=== PATIENT | female | born 1925 | race Caucasian/White ===

== ENCOUNTER 2017-01-13 20:14 | Inpatient (IN) | payer OTHER, BC ==
[~2017-01-13] VITALS: Ht 157.5 cm; Wt 67.2 kg
--- NOTE | ~2017-01-13 | EKG ---
[address] [address] ELECTROCARDIOGRAM REPORT Name: AQUILINO SAAVEDRA Room #: 214-P ADM IN M.R.#: [id number] Admission: 01/13/17 Attend Phys: Lew Escobar MD Discharge: Date of : [birth year] Report #: [id number] THIS REPORT FOR: //name// [facility] Test Date: 2017-01-14 Test Time: 06:53:16 Pat Name: AQUILINO SAAVEDRA Department: Room: 214 P Gender: F [employer]: serg : 1925 Requested By: Luis Stuart Order Number: [id number] MD: Rohan Grayson Measurements Intervals [place] Rate: 106 P: 68 VA: 160 QRS: 28 QRSD: 92 T: 0 QT: 338 QTc: 449 Interpretive Statements Sinus tachycardia Borderline repol abnrm, inferolateral leads No previous ECG available for comparison Electronically Signed On 01-15-2017 12:43:38 CDT by Rohan Grayson [email or web address] <ELECTRONICALLY SIGNED> By: Rohan Grayson MD 01/15/17 1243 0653 0653 Rohan Grayson MD /THERESE
--- NOTE | ~2017-01-13 | H ---
[facility] [place] [address] HISTORY AND PHYSICAL Name: AQUILINO SAAVEDRA Room #: 214-P ADM IN M.R.#: [id number] Admission: 01/13/17 Attend Phys: Lew Escobar MD Discharge: Date of : [birth year] Report #: [id number] THIS REPORT FOR: //name// CC: MAUREEN Escobar DATE OF ADMISSION: 01/13/2017 ATTENDING PHYSICIAN: Dr. Crouch. PRIMARY CARE PHYSICIAN: Dr. Sterling in ____. CHIEF COMPLAINT: Elevated troponin. HISTORY OF PRESENT ILLNESS: The patient is an 89-year-old female, who was recently admitted two days ago at [facility] for fevers and chills. Initially, there was not a source of infection, but on a repeat chest x-ray, it looks like she did develop left lower lobe pneumonia. Initially, she had been on Rocephin and Zithromax, but because she was still spiking fevers, her antibiotics were changed to Avelox. Yesterday while receiving her Avelox dose, she had a suddenly increase in heart rate with some chest heaviness and became very short of air. She also dropped her blood pressure. Her troponin came back mildly elevated, so she was transferred here at the request of her physician, who happened to also be her son, Dr. Sterling. She was also noted to be anemic. There were no signs of bleeding. She had been on prophylactic Lovenox, but this was held once her hemoglobin started dropping. On repeat blood draws, her hemoglobin was 7 and she was receiving blood transfusion upon arrival to [place]. She does have a history of mesenteric ischemia and GI bleeding. She had had a colonoscopy previously, which showed some AVMs. She has had celiac as well as iliac vascular stents. When she was here in 2008 for those stents, she also underwent a cardiac catheterization. She has a total of 3 coronary stents as well. She is followed by Dr. Stuart. She was transferred here for further cardiac evaluation. Upon arrival, she was doing well. She did receive a dose of Lasix since she had become wheezy after receiving IV fluids. She was afebrile on arrival. There is no prior history of any DVT or PE. PAST MEDICAL HISTORY: Coronary artery disease, hyperlipidemia, carotid disease, hypertension, hypothyroidism, mesenteric ischemia, GI bleed with AVMs, and peripheral arterial disease. PAST SURGICAL HISTORY: Celiac and iliac vascular stents, coronary stents x 3, tonsillectomy, hysterectomy, ____. ALLERGIES: PLAVIX, COREG, and AVELOX. HOME MEDICATIONS: Lisinopril 10 mg p.o. b.i.d., Estradiol 1 mg p.o. daily, [facility] [address] [place] [address] HISTORY AND PHYSICAL Name: AQUILINO SAAVEDRA Room #: 214-P ADM IN M.R.#: [id number] Admission: 01/13/17 Attend Phys: Lew Escobar MD Discharge: Date of : [birth year] Report #: [id number] ranitidine 75 mg daily, levothyroxine 100 mcg daily, loratadine 10 mg b.i.d., aspirin 81 mg daily, calcium carbonate 1 tab daily, Myrbetriq 50 mg daily, and cholestyramine 4 grams daily. SOCIAL HISTORY: The patient is an ex-smoker, having smoked up to a pack per day for about 33 years. She quit in 1979. She drinks alcohol about 1-2 times per month. She is actually a retired RN, she lives alone. She is a . She ambulates with a cane or a walker. FAMILY HISTORY: Her mother had hypertension and stroke. Her father had ____ cancer and her sister had ovarian cancer. REVIEW OF SYSTEMS: A twelve-point review of systems was reviewed with the patient and family and otherwise negative unless stated in the HPI. PHYSICAL EXAMINATION: GENERAL: The patient is an alert female, in no acute distress. VITAL SIGNS: Temperature is 36.8, heart rate 79, respirations 18, blood pressure is 129/89, and oxygen 95% on 2 liters O2. HEENT: PERRLA. Sclerae are nonicteric. Oral mucosa is pink and moist. NECK: Supple, no JVD noted. CARDIOVASCULAR: Normal S1, S2. No murmurs, rubs, or gallops. RESPIRATORY: Breath sounds are clear bilaterally. No wheezing or rhonchi. She does have a few fine crackles in bilateral bases. Breathing is nonlabored. ABDOMEN: Soft, round, nontender, and nondistended with positive bowel sounds. VASCULAR: No edema noted. Pedal pulses are 2+. She does have some mild pain in her left leg with palpation. DICTATION STOPS ABRUPTLY <ELECTRONICALLY SIGNED> By: LLOYD Amezcua 01/15/17 0907 0912 1157 LLOYD Amezcua /nt
--- NOTE | ~2017-01-13 | HC ---
[facility] [place] [address] CONSULTATION Name: AQUILINO SAAVEDRA Room #: 214-P ADM IN M.R.#: [id number] Admission: 01/13/17 Attend Phys: Lew Escobar MD Discharge: Date of : [birth year] Report #: [id number] THIS REPORT FOR: //name// CC: CLYDE STERLING DO Lew Escobar HISTORY OF PRESENT ILLNESS: The patient is an 89-year-old female, well known to myself, who lives, I believe, in [place], [place]. Her son is Dr. Clyde Sterling and her father is Dr. Jj Sterling here in town. She has a history of moderate carotid disease, which we have been following, but she became ill at the end of last week, it sounds like with some questionable fever, chills, cough and shortness of breath. She has had a history of peripheral vascular disease with iliac stents and a patent superior mesenteric, inferior mesenteric and celiac arteries. The inferior mesenteric was previously stented. She has a history of remote coronary interventions and a diffusely diseased RCA, but no recent interventions coronary echols. She did have some hypoxia and some anemia and had developed some ST depression on an EKG in [place], with a troponin of 0.5, which was somewhat equivocal. Had some associated chest pain. She is having no further pain. She was transfused a unit. Hemoglobin initially around 7, now 9.5 today. She is in sinus rhythm. This morning's EKG has normalized with some borderline sinus tachycardia with some subtle ST abnormalities laterally. She has been compliant. She denies any melenic stools or any obvious source of bleeding. MEDICATIONS: She has been on baby aspirin, Claritin, Synthroid, cholestyramine, lisinopril 10 b.i.d., ranitidine and levothyroxine. ALLERGIES: MOXIFLOXACIN, SULFA and PLAVIX. PAST MEDICAL HISTORY: Positive for coronary artery disease; left internal carotid artery stenosis 70% to 80% asymptomatic, we are following; PVD with history of inferior mesenteric artery stents and common iliac stents; hypertension; hypercholesterolemia; renal stents and DJD. SOCIAL HISTORY: No current alcohol or tobacco. She is . She lives independently. FAMILY HISTORY: Negative for premature coronary disease. REVIEW OF SYSTEMS: Essentially negative, except for perhaps some slight worsening forgetfulness and more fatigue she complains to me and as stated above. LABORATORY DATA: Sodium 132, potassium 4.1, creatinine 1.5, GFR is 33. Liver function tests are normal. H and H are 9.5 and 28, white count is 9.0 and platelets 172,000. [address] [address] CONSULTATION Name: AQUILINO SAAVEDRA Room #: 214-P [facility] IN M.R.#: [id number] Admission: 01/13/17 Attend Phys: Lew Escobar MD Discharge: Date of : [birth year] Report #: [id number] PHYSICAL EXAMINATION: GENERAL: She is pleasant and alert. VITAL SIGNS: Blood pressure 150/90, pulse is 80s and regular. HEENT: Eyes reveal some arcus senilis, but no xanthelasmas. Pharynx is clear. NECK: Shows preserved upstrokes without JVD. There is a left-sided bruit. LUNGS: Clear with slight prolonged expiratory phase, few crackles in the left base. CARDIAC EXAMINATION: Regular rate and rhythm. S1, S2. There is a faint holosystolic murmur at the apex. ABDOMEN: Soft, HSM, abdominal bruit. EXTREMITIES: Reveal diminished pulses, but intact. NEUROLOGIC: Nonfocal. SKIN: Warm and dry, without xanthoma or ulcer. MUSCULOSKELETAL: No gross joint deformity. ASSESSMENT: 1. Pneumonia. 2. Ischemic EKG changes. 3. Anemia, improved. 4. Peripheral vascular disease with history of iliac and renal stents, inferior mesenteric artery stents. 5. Coronary artery disease, stable with now subtle EKG changes and equivocal troponin. RECOMMENDATIONS AND PLAN: We are waiting for GI evaluation. V/Q scan with her pain and elevated D-dimer, although it seems less likely here. She is minimally hypoxic. We will repeat a chest x-ray in addition. We will review echo Doppler looking for any wall motion abnormality, but I suspect this will not be the finding. Discussed the above with GI and primary. Thank you for asking us to assist in the care of this patient. By: 0851 1430 Luis Stuart MD, FACC /nt
--- NOTE | ~2017-01-13 | HC ---
[facility] [address] [place] [address] CONSULTATION Name: AQUILINO SAAVEDRA Room #: 214-P ADM IN M.R.#: [id number] Admission: 01/13/17 Attend Phys: Lew Escobar MD Discharge: Date of : [birth year] Report #: [id number] THIS REPORT FOR: //name// CC: MAUREEN Kaur MD [facility] Lew Dai MD DATE OF SERVICE: 01/14/2017 HISTORY OF PRESENT ILLNESS: The patient is an 89-year-old female who was recently admitted to [facility] for fevers and chills. She was then diagnosed with a left lower lobe pneumonia. She does report some wheezing and she was started on antibiotics. During that hospitalization, she had an episode of tachycardia, chest heaviness and mild elevation in troponin, also had a drop in her hemoglobin and has a history of anemia. Because of these reasons, she was transferred to for further evaluation. She apparently has been receiving blood transfusion at the previous hospital. She states there is a history of colonoscopy showing AVMs in the past. I do not have a copy of these reports. She believes her last colonoscopy was performed at [place], but looking back in the computer, there is no history of that. She does have a history of mesenteric ischemia as well as peripheral vascular disease. She currently denies any chest pain or shortness of breath. Her stools are Hemoccult positive today times 1. She denies any obvious bright red blood per rectum or melena recently. She denies any abdominal pain. She does have a history of chronic diarrhea and takes cholestyramine as well as Imodium, which in general controls her symptoms fairly well. PAST MEDICAL HISTORY: Peripheral vascular disease, history of mesenteric ischemia, possible history of colon AVMs, recent diagnosis of pneumonia, anemia, history of coronary artery disease, hypertension, hypercholesterolemia and history of renal stents. ALLERGIES: PLAVIX, SULFA and MOXIFLOXACIN. MEDICATIONS ON ADMISSION: Aspirin, Claritin, cholestyramine, lisinopril, Zantac and Synthroid. FAMILY HISTORY: Negative for colon cancer. REVIEW OF SYSTEMS: As per HPI. SOCIAL HISTORY: She denies any tobacco or alcohol use. PHYSICAL EXAMINATION: [facility] [address] [place] [address] CONSULTATION Name: AQUILINO SAAVEDRA Room #: 214-P [facility] IN ..#: [id number] Admission: 01/13/17 Attend Phys: Lew Escobar MD Discharge: Date of : [birth year] Report #: [id number] VITAL SIGNS: Temperature 98.8, pulse 98, blood pressure 186/68, respiratory rate is 22 and O2 sat 100%. GENERAL: She is alert and oriented times 3, in no acute distress. HEENT: Sclerae nonicteric. Oropharynx clear. NECK: Supple, without lymphadenopathy. CARDIOVASCULAR: Regular rate and rhythm. CHEST: With bilateral faint expiratory wheezes, decreased breath sounds in the left base. ABDOMEN: Soft. She is nontender and nondistended. Normoactive bowel sounds. EXTREMITIES: No cyanosis, clubbing or edema. LABORATORY DATA: Sodium 132, potassium 4.1, chloride 97, bicarbonate 26, BUN 13, creatinine 1.5 and glucose 99. AST is 96, total bilirubin 0.7, calcium 8.0, magnesium 1.9, alkaline phosphatase 80 and ALT is 53. Total protein 6.1. Albumin 2.8. Troponin 0.56. WBC is 9.0, hemoglobin 9.5, MCV 73.7 and platelet count 172,000. Chest x-ray, mediastinal widening with right paratracheal widening. CT could evaluate this further indicated small right pleural effusion. CT scan of the chest has been ordered. A nuclear medicine V/Q scan shows low probability for pulmonary embolus. ASSESSMENT AND PLAN: Anemia and heme-positive stools. No history of obvious GI bleed, including melena or bright red blood per rectum. Currently, the patient has a history of pneumonia. I would recommend continuing to monitor hemoglobin closely. Consider endoscopy if necessary. However, because of her pulmonary status and her age and other factors, would prefer the patient to hopefully improve from a pulmonary status before considering endoscopy. We will start PPI therapy. We will need to obtain old records of previous colonoscopy. Thank you for allowing me to participate in her care. <ELECTRONICALLY SIGNED> By: Shaan Cantu MD 01/15/17 1621 1734 0042 Shaan Cantu MD /nt
--- NOTE | ~2017-01-13 | HC ---
[facility] [place] [address] [place] [address] CONSULTATION Name: AQUILINO SAAVEDRA Room #: 214-P [facility] IN M.R.#: [id number] Admission: 01/13/17 Attend Phys: Lew Escobar MD Discharge: 01/16/17 Date of : [birth year] Report #: [id number] THIS REPORT FOR: //name// CC: MAUREEN Escobar DATE OF SERVICE: 01/16/2017 HISTORY OF PRESENT ILLNESS: The patient is an 89-year-old white female who lives in [place], [place], was originally admitted to [facility], noted to have fever, chills and diagnosed with a left lower lobe pneumonia. She had an elevated heart rate. There was concern regarding her overall status and she was transferred to [facility]. She was diagnosed with pneumonia with ischemic cardiac changes and possible ST elevation [place]. Cardiology is involved with recommendations for stress testing as an outpatient. She also had a heme positive stool and is on PPIs. She does have medical complexity with generalized debilitation. She is being followed by Pulmonary, Cardiology, Gastroenterology as well as Internal Medicine. She was noted to have a severe paroxysmal cough, which is significantly improved. She has had a significant decline in her overall function and we are seeing her in rehabilitation medicine consultation. PAST MEDICAL HISTORY: Includes prior [place], prior cardiac stent x 3, right hand surgery with arthritis. She has had 2 renal stents and 2 mesenteric stents. ALLERGIES: MOXIFLOXACIN, SULFA and CLOPIDOGREL. SOCIAL HISTORY: Lives in a house alone, was premorbidly independent for ADLs. She used a cane at all times. There are 3 steps into the house. She lives in [place], [place]. Her daughter lives very close and there is a son who lives there as well who is a physician. She has another son, Dr. Jj Sterling who is a carburetor rebuilder here in the [place]. REVIEW OF SYSTEMS: Did not offer any current complaints of chest pain, shortness of breath or abdominal discomfort. She notes that she is considerably weak. No focal extremity pain complaints. PHYSICAL EXAMINATION: GENERAL: An 89-year-old small statured, thin, white female in no obvious distress. She is very pleasant, alert, oriented. HEENT: Appeared to be benign. VITAL SIGNS: Temperature 98, pulse 80, respirations 16, blood pressure 170/90. NEUROLOGIC: Facies are symmetric. She has functional range of motion of both upper extremities without obvious focal weakness. DTRs are trace to 1. In her lower extremities, there is no focal calf swelling, functional range of motion with strength grade 4-/5. DTRs are trace to 1. She is mod assist with sit to [address] [address] CONSULTATION Name: AQUILINO SAAVEDRA Room #: 214-P DIS IN M.R.#: [id number] Admission: 01/13/17 Attend Phys: Lew Escobar MD Discharge: 01/16/17 Date of : [birth year] Report #: [id number] stand. She has some decreased balance. Tends to fatigue fairly quickly. ASSESSMENT: An 89-year-old white female with the following problem list: 1. Medical complexity with generalized debilitation. 2. Pneumonia, left lower lobe. Likely has bronchitis as well. Bronchodilators, steroids, Pulmonary is following. 3. Ischemic EKG changes with recommendations for outpatient nuclear. 4. Heme positive stool on PPI, GI is following. 5. History of peripheral vascular disease with renal and iliac stents, inferior mesenteric artery stents. 6. Coronary artery disease. 7. Hypertension. 8. History of hyponatremia. 9. Severe paroxysmal cough, which has improved, suspect due to gastroesophageal reflux disease. PLAN: Therapy evaluations are underway. Would anticipate she should be a good acute inpatient rehabilitation candidate, but we will see how she does further in therapies. Discussion with the patient's son father Asher. We will be glad to follow along with you regarding her rehab therapy needs. <ELECTRONICALLY SIGNED> By: Eloy Baez MD 01/22/17 1825 1148 1243 Eloy Baez MD /nt
--- NOTE | ~2017-01-13 | HC ---
[facility] [place] [address] CONSULTATION Name: AQUILINO SAAVEDRA Room #: 214-P [facility] IN M.R.#: [id number] Admission: 01/13/17 Attend Phys: Lew Escobar MD Discharge: 01/16/17 Date of : [birth year] Report #: [id number] THIS REPORT FOR: //name// CC: CLYDE Escobar PRIMARY CARE PHYSICIAN: Dr. Clyde Sterling. REFERRING PHYSICIAN: Dr. Lew Escobar. REASON FOR REFERRAL: Cough. HISTORY OF PRESENT ILLNESS: The patient is an 89-year-old white female who was admitted with progressive cough and dyspnea. A pulmonary consultation was requested. The patient was in her usual state of health until a few days ago, she started to develop cough. She then developed low-grade fever. She had a mildly productive cough of clearish sputum. She was admitted at [facility]. Chest x-ray performed there suggests possible left sided infiltrates. The patient was given Rocephin and Zithromax. With persistent symptoms, antibiotics was switched to Avelox. This resulted in tachycardia and chest heaviness. Her troponin was mildly elevated. The patient's son was Ashley Mejíaer, requested a transfer to [facility]. Overall, she feels about the same. She still has severe paroxysmal cough, sputum color remains clear. Denies any chest pain or hemoptysis. The patient has smoked for about 40 years, quit several years ago. She has no prior history of chronic lung disease. She denies any history of chronic bronchitis. The patient does have trouble with chronic dyspepsia. PAST MEDICAL HISTORY: Includes history of mesenteric ischemia with past history of GI bleed, history of gastrointestinal AVMs, coronary artery disease, hyperlipidemia, peripheral artery disease involving carotids and hypertension. PAST SURGICAL HISTORY: Stents being placed in iliac and celiac arteries, coronary artery stents placement in the past, tonsillectomy and hysterectomy. ALLERGIES: AVELOX, PLAVIX, COREG. AVELOX causes rash. MEDICATIONS: List reviewed in the MAR. FAMILY HISTORY: Notable for hypertension and CVA in the mother. Father had cancer of unknown type. 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 Her was a physician along with the son. She has smoked about a pack a day for a total of 33 years, quit in 1979. She drinks 1-2 drinks per month. REVIEW OF SYSTEMS: As mentioned above, otherwise 10-point system review negative. PHYSICAL EXAMINATION: GENERAL: She is awake, alert, in no apparent distress. VITAL SIGNS: Temperature is 98.8 degrees Fahrenheit, pulse is 98, respiratory rate is 22, blood pressure is 150/98 mmHg, saturation 98%. HEENT: Normocephalic, atraumatic. NECK: Supple, without any lymphadenopathy or thyromegaly. CHEST: Breath sounds are good with few scattered crackles. No wheezes. CARDIOVASCULAR: Normal S1, S2. No murmurs or gallop. ABDOMEN: Soft, nontender, no organomegaly or masses felt. GENITOURINARY: Deferred. RECTAL: Deferred. EXTREMITIES: No cyanosis or clubbing. DERMATOLOGIC: Revealed mild macular rash throughout. LABORATORY DATA: Chest x-ray was grossly unremarkable except for a questionable mediastinal widening, right paratracheal widening. Echocardiogram showed normal ejection fraction, [id number] mitral regurgitation and moderate pulmonary artery pressure measuring 45-50. VQ scan showed low probability scan. Electrolytes: Sodium 132, potassium 4.1, chloride 97, CO2 is 26, BUN 13, creatinine is 1.5. Liver function test is normal. WBC 9000, hemoglobin is microcytic and hypochromic indices. Platelets are normal. Troponin 0.6, albumin 2.8. IMPRESSION: 1. Cough, febrile illness in this 89-year-old white female. She has long history of tobacco use, but quit many years ago. She has dyspepsia. Chest x-ray shows questionable mediastinal widening. Etiology of the cough is probably related to gastroesophageal reflux disease with febrile illness, cannot rule out infectious source, though her sputum has remained clear. Underlying chronic obstructive pulmonary disease is also considered. 2. Questionable widening mediastinum. I will proceed with CT chest. 3. Long history of tobacco use. Based on pulmonary functions, will be helpful as an outpatient. 4. Chest discomfort with elevated troponin, currently undergoing cardiac evaluation. 5. Dyspepsia, gastroesophageal reflux disease. 6. Coronary artery disease. 7. Peripheral artery disease. [facility] [address] [place] [address] CONSULTATION Name: AQUILINO SAAVEDRA Room #: 214-P DIS IN M.R.#: [id number] Admission: 01/13/17 Attend Phys: Lew Escobar MD Discharge: 01/16/17 Date of : [birth year] Report #: [id number] RECOMMENDATION: Agree with current medical treatment plans including corticosteroids and bronchodilators, was switched to Protonix p.o. Agree with antibiotics. We will also obtain CT chest regarding questionable mediastinal process. The findings were discussed in detail with the patient and her son. Thank you for this consultation. <ELECTRONICALLY SIGNED> By: Chandrakant Dai MD 01/19/17 1600 1702 0146 Chandrakant Dai MD /nt
--- NOTE | ~2017-01-13 | 2DMMODE ---
[facility] [address] [place] [address] 2 D/M-MODE ECHOCARDIOGRAM Name: AQUILINO SAAVEDRA Room #: 214-P ADM IN M.R.#: [id number] Admission: 01/13/17 Attend Phys: Michael Wellington Discharge: Date of : [birth year] Date of Service: 01/14/17 1358 Report #: [id number] THIS REPORT FOR: //name// APPROVED REPORT Study performed: 01/14/2017 11:43:20 EXAM: Comprehensive 2D, Doppler, and color-flow Echocardiogram Patient Location: Echo lab Room #: 214 Status: routine Other Information Study Quality: Adequate Indications Dyspnea Hx: NC, stents 2D Dimensions RVDd: 30.14 mm LVEF(%): 52.95 (>50%) IVSd: 9.83 (7-11mm) LVOT Diam: 19.93 (18-24mm) LVDd: 42.75 mm PWd: 9.73 (7-11mm) LVDs: 31.21 (25-40mm) Aortic Root: 27.95 mm Louis's LVEF: 52.95 % Volumes Left Atrial Volume (Systole) Single Plane 4CH: 46.79 mL Single Plane 2CH: 48.74 mL LA ESV Index: 31.00 mL/m2 Aortic Valve AoV Peak Campbell.: 1.90 m/s AO Peak Gr.: 14.40 mmHg LVOT Max P.58 mmHg LVOT Max V: 1.28 m/s SHALONDA Vmax: 2.11 cm2 Mitral Valve E/A Ratio: 1.7 MV Decel. Time: 142.06 ms MV E Max Campbell.: 1.45 m/s MV A Campbell.: 0.87 m/s MV PHT: 41.[address] [facility] [place] [address] 2 D/M-MODE ECHOCARDIOGRAM Name: AQUILINO SAAVEDRA Room #: 214-P [facility] IN .R.#: [id number] Admission: 01/13/17 Attend Phys: Michael Wellington Discharge: Date of : [birth year] Date of Service: 01/14/17 1358 Report #: [id number] IVRT: 59.98 ms Pulmonary Valve PV Peak Campbell.: 1.19 m/s PV Peak Gr.: 5.63 mmHg Pulmonary Vein P Vein S: 0.50 m/s P Vein D: 0.71 m/s P Vein S/D Ratio: 0.70 Tricuspid Valve TR Peak Campbell.: 3.10 m/s RAP Estimate: 10.00 mmHg TR Peak Gr.: 38.33 mmHg PA Pressure: 48.00 mmHg Left Ventricle The left ventricle is normal size. There is normal left ventricular wall thickness. Left ventricular systolic function is normal. LVEF is 55%. Right Ventricle The right ventricle is normal size. The right ventricular systolic function is normal. Atria Left atrium is mildly dilated. The right atrium size is normal. Aortic Valve The Aortic valve is sclerotic. No aortic regurgitation is present. There is no aortic valvular stenosis. Mitral Valve Mitral valve leaflets are thickened and calcified. Moderate mitral annular calcification. Moderate mitral regurgitation. No evidence of mitral valve stenosis. Tricuspid Valve The tricuspid valve is normal in structure. There is mild to moderate tricuspid regurgitation. The right atrial pressure is estimated at 10 mmHg. There is moderate pulmonary hypertension with an estimated PAP of 45-50mmHg. Pulmonic Valve The pulmonary valve is normal in structure. Mild pulmonic regurgitation. [facility] [address] [place] [address] 2 D/M-MODE ECHOCARDIOGRAM Name: AQUILINO SAAVEDRA Room #: 214-P ADM IN ..#: [id number] Admission: 01/13/17 Attend Phys: Michael Wellington Discharge: Date of : 04/[birth year] Date of Service: 01/14/17 1358 Report #: [id number] Great Vessels The aortic root is normal in size. Ascending aorta is not well visualized. IVC is dilated and collapses >50% with inspiration. Pericardium There is no pericardial effusion. <Conclusion> The left ventricle is normal size. LVEF is 55%. Left atrium is mildly dilated. The Aortic valve is sclerotic. Mitral valve leaflets are thickened and calcified. Moderate mitral annular calcification. Mild to moderate mitral regurgitation. The tricuspid valve is normal in structure. There is mild to moderate tricuspid regurgitation. The right atrial pressure is estimated at 10 mmHg. There is moderate pulmonary hypertension with an estimated PAP of 45-50mmHg. The pulmonary valve is normal in structure. Mild pulmonic regurgitation. <ELECTRONICALLY SIGNED> By: Maulik Bedolla MD 01/14/17 1358 1358 1358 Maulik Bedolla MD /INF
[2017-01-13 21:51] VITALS: BP 129/89
[2017-01-13] MEDS ORDERED: LISINOPRIL10 MG PO (21:54)
[2017-01-13] MEDS ORDERED: ESTRADIOL 1 MG T1 M1 PO (21:55)
[2017-01-13] MEDS ORDERED: HEARTBURN RELIE75 MG PO (21:56)
[2017-01-13] MEDS ORDERED: LEVOTHYROXINE 0.1 MG PO (21:56)
[2017-01-13] MEDS ORDERED: CLARITIN10 M2 PO (21:57)
[2017-01-13] MEDS ORDERED: LO-DOSE ASPIRIN81 M1 PO (21:58)
[2017-01-13] MEDS ORDERED: CALCIUM 600 +1 EAC1 PO (21:59)
[2017-01-13] MEDS ORDERED: MYRBETRIQ50 MG PO (22:00)
[2017-01-13] MEDS ORDERED: CHOLESTYRAMINE P4 GM PO (22:02)
[2017-01-13 23:15] LABS: MAGNESIUM 1.4 mg/dL (1.8-2.4)
[2017-01-13 23:21] LABS: TROPONIN-I 0.67 ng/mL (<0.04-0.07)
[2017-01-14] VITALS (8 sets, daily range): BP systolic 120–186; BP diastolic 52–98
[2017-01-14 04:57] LABS: HEMATOCRIT 28.4 % (37.0-47.0); HEMOGLOBIN 9.5 gm/dL (12.0-15.0); MCH 24.8 pg (26.0-34.0); MCHC 33.6 g/dL (28.0-37.0); MCV 73.7 fL (80.0-100.0); RBC 3.85 mil/uL (4.20-5.00); RDW 19.2 % (10.5-14.5)
[2017-01-14 05:20] LABS: ALBUMIN 2.8 g/dL (3.4-5.0); CREATININE 1.5 mg/dL (0.6-1.0); MAGNESIUM 1.9 mg/dL (1.8-2.4); POTASSIUM 4.1 mmol/L (3.5-5.1); TOTAL BILIRUBIN 0.7 mg/dL (<0.1-1.0); TOTAL PROTEIN 6.1 g/dL (6.4-8.2); TROPONIN-I 0.56 ng/mL (<0.04-0.07)
[2017-01-15 04:24] VITALS: BP 152/79
[2017-01-15 07:40] VITALS: BP 148/88
[2017-01-15 16:58] VITALS: BP 184/79
[2017-01-16 00:44] VITALS: BP 159/75
[2017-01-16 04:03] LABS: CALCIUM 8.3 mg/dL (8.5-10.1); CREATININE 1.2 mg/dL (0.6-1.0); POTASSIUM 4.1 mmol/L (3.5-5.1)
[2017-01-16 04:33] LABS: HEMATOCRIT 24.4 % (37.0-47.0); HEMOGLOBIN 8.3 gm/dL (12.0-15.0); MCH 24.9 pg (26.0-34.0); MCHC 34.1 g/dL (28.0-37.0); RBC 3.35 mil/uL (4.20-5.00); RDW 19.2 % (10.5-14.5); WBC 10.2 thou/uL (4.0-11.0)
[2017-01-16 04:39] VITALS: BP 180/82
[2017-01-16 07:58] VITALS: BP 170/90
[2017-01-16 11:55] VITALS: BP 140/80
[2017-01-16] MEDS ORDERED: COLACE 100 MG100 MG PO (13:13)
[2017-01-16] MEDS ORDERED: PREDNISONE 10 M10 MG PO (13:13)
[2017-01-16] MEDS ORDERED: AMLODIPINE BESY10 MG PO (13:13)
[2017-01-16] MEDS ORDERED: AUGMENTIN 875875 MG PO (13:13)
== END 2017-01-16 14:42 | DRG 280 ==
LOC: 2N 20:14
PROVIDERS: Family Medicine; Nurse Practitioner Acute Care
DX: I21.4 Non-ST elevation (NSTEMI) myocardial infarction (principal); J18.9 Pneumonia, unspecified organism; E87.1 Hypo-osmolality and hyponatremia; I73.9 Peripheral vascular disease, unspecified; I25.10 Atherosclerotic heart disease of native coronary artery without angina pectoris; I10 Essential (primary) hypertension; J40 Bronchitis, not specified as acute or chronic; E78.00 Pure hypercholesterolemia, unspecified; M19.90 Unspecified osteoarthritis, unspecified site; D64.9 Anemia, unspecified; Z60.2 Problems related to living alone; I65.22 Occlusion and stenosis of left carotid artery; K21.9 Gastro-esophageal reflux disease without esophagitis; E03.9 Hypothyroidism, unspecified; Z88.1 Allergy status to other antibiotic agents; Z88.2 Allergy status to sulfonamides; Z98.62 Peripheral vascular angioplasty status; Z87.891 Personal history of nicotine dependence; Z90.710 Acquired absence of both cervix and uterus; I25.2 Old myocardial infarction; Z80.41 Family history of malignant neoplasm of ovary; Z79.82 Long term (current) use of aspirin; Z79.899 Other long term (current) drug therapy; Z82.49 Family history of ischemic heart disease and other diseases of the circulatory system; Z82.3 Family history of stroke
CPT/HCPCS: 10081

== ENCOUNTER 2017-01-16 13:39 | Inpatient (IN) | payer OTHER, BC ==
[~2017-01-16] VITALS: Ht 157.5 cm; Wt 64.3 kg
--- NOTE | ~2017-01-16 | H ---
[facility] [place] [address] HISTORY AND PHYSICAL Name: AQUILINO SAAVEDRA Room #: 503-P DIS IN M.R.#: [id number] Admission: 01/16/17 Attend Phys: Eloy Baez MD Discharge: 01/17/17 Date of : [birth year] Report #: [id number] THIS REPORT FOR: //name// CC: Eloy VICENTE DATE OF SERVICE: 01/16/2017 HISTORY OF PRESENT ILLNESS: The patient was admitted to the acute inpatient rehab [facility] on 01/16/2017. She had been seen by me in consultation earlier that day on the acute Med/Surg bennett. Please see my prior consultation. She was admitted with pneumonia, left lower lobe, ischemic EKG changes, heme positive stool, history of peripheral vascular disease, coronary artery disease, severe paroxysmal cough, which had improved and was noted to have medical complexity with generalized debilitation. I did not see the patient upon her admission to the rehab ben[facility] as she was discharged prior. Her past medical history, social history etc, please see my consult note of the patient from yesterday. HOSPITAL COURSE: The patient was up with the nurse and apparently had a big sneeze and quickly, fell backwards. She hit her occiput. No acute mental status changes were noted but she had a significant posterior scalp hematoma laceration. CT of the head demonstrated the scalp laceration of the head and no evidence of fracture of the cranium. She had been taken to the ED for randal. General Surgery was involved. The plan was to monitor her more closely and she was thus discharged from rehabilitation back to the acute Med/Surg bennett for more close monitoring. ADMISSION DIAGNOSES: Include: 1. Medical complexity with generalized debilitation. 2. Pneumonia, left lower lobe. 3. Ischemic EKG changes, 4. Heme positive stool, on PPI. 5. History of peripheral vascular disease with renal and iliac stents, inferior mesenteric artery stent. 6. Coronary artery disease. 7. Hypertension. 8. History of hyponatremia. 9. History of severe paroxysmal coughing, which had improved. 10. Fall with an occipital significant scalp laceration. <ELECTRONICALLY SIGNED> By: Eloy Baez MD 01/22/17 1825 1431 1458 Eloy Baez MD /nt
--- NOTE | ~2017-01-16 | D ---
[facility] [place] [address] [place] [address] DISCHARGE SUMMARY Name: AQUILINO SAAVEDRA Room #: 503-P DIS IN M.R.#: [id number] Admission: 01/16/17 Attend Phys: Eloy Baez MD Discharge: 01/17/17 Date of : [birth year] Report #: [id number] THIS REPORT FOR: //name// CC: Eloy REDDY VICENTE DATE OF SERVICE: 01/17/2017 Please see my prior consultation from early today, the history and physical as well as the consult dictation from yesterday. DISCHARGE DIAGNOSES: 1. Medical complexity with generalized debilitation. 2. Pneumonia, left lower lobe. 3. Ischemic EKG changes. 4. Heme positive stool. 5. Peripheral vascular disease with renal and iliac stents and inferior mesenteric artery stents. 6. Coronary artery disease. 7. Hypertension. 8. History of hyponatremia. 9. Severe paroxysmal cough, which had improved. 10. Fall with significant occipital scalp laceration. She was transferred off the acute rehab ben[facility] for further evaluation and monitoring and surgical repair. <ELECTRONICALLY SIGNED> By: Eloy Baez MD 01/22/17 1825 1434 1449 Eloy Baez MD /nt
--- NOTE | ~2017-01-16 | HC ---
[facility] [place] [address] [place] [address] CONSULTATION Name: AQUILINO SAAVEDRA Room #: 503-P [facility] IN ..#: [id number] Admission: 01/16/17 Attend Phys: Eloy Baez MD Discharge: 01/17/17 Date of : [birth year] Report #: [id number] THIS REPORT FOR: //name// CC: Eloy REDDY ASHLAND DATE OF SERVICE: 01/16/2017 HISTORY OF PRESENT ILLNESS: I have been asked to evaluate this 89-year-old lady who is on the rehabilitation unit, who was brushing her teeth this morning when she fell backwards, striking her head. She denied loss of consciousness, but incurred a significant posterior scalp hematoma laceration. She has had a CT scan demonstrating only the scalp laceration and no evidence of fracture of the cranium. She was on rehab after a recent stay in the coronary care unit. She has significant posterior occipital scalp pain and bleeding is somewhat controlled with pressure. PAST MEDICAL HISTORY: Cardiovascular disease, relatively unknown. The patient is alert and cooperative. PAST SURGICAL HISTORY: Not obtained. ALLERGIES: SULFA medication. MEDICATIONS: Medication list is extensive and see the medical record. She is on aspirin, but denies Eliquis, Coumadin or other anticoagulant medications. SOCIAL HISTORY: . PHYSICAL EXAMINATION: GENERAL: Reveals an alert, cooperative lady lying on a stretcher with pressure over the occipital scalp region. She is alert, cooperative and oriented to person, place and time. NECK: Supple. MUSCULOSKELETAL: Lower back is tender in the lumbosacral region secondary to recent fall. HEENT: Occipital area demonstrates a 2- to 3-cm hematoma in the central portion of an avulsion-type laceration with matting of the scalp hair. DIAGNOSTIC IMPRESSION: Posterior scalp hematoma laceration which requires emergent operative repair in the operating room today. [facility] [address] [place] [address] CONSULTATION Name: AQUILINO SAAVEDRA Room #: 503-P [facility] IN .R.#: [id number] Admission: 01/16/17 Attend Phys: Eloy Baez MD Discharge: 01/17/17 Date of : [birth year] Report #: [id number] Thank you for allowing us to participate in her care. <ELECTRONICALLY SIGNED> By: Kendrick Bonilla MD, FACS 01/17/17 1257 1049 1222 Kendrick Bonilla MD, FACS /nt
[~2017-01-16 13:39] MED LIST: AMLODIPINE BESY10 MG PO; AUGMENTIN 875875 MG PO; CALCIUM 600 +1 EAC1 PO; CHOLESTYRAMINE P4 GM PO; CLARITIN10 M2 PO; COLACE 100 MG100 MG PO; ESTRADIOL 1 MG T1 M1 PO; HEARTBURN RELIE75 MG PO; LEVOTHYROXINE 0.1 MG PO; LISINOPRIL10 MG PO; LO-DOSE ASPIRIN81 M1 PO; MYRBETRIQ50 MG PO; PREDNISONE 10 M10 MG PO
[2017-01-16 15:25] VITALS: BP 124/88
[2017-01-16 19:56] VITALS: BP 179/89
[2017-01-17 05:45] VITALS: BP 188/79
[2017-01-17 06:09] LABS: HEMOGLOBIN 8.1 gm/dL (12.0-15.0); MCH 24.7 pg (26.0-34.0); MCHC 33.7 g/dL (28.0-37.0); MCV 73.2 fL (80.0-100.0); RBC 3.28 mil/uL (4.20-5.00); RDW 19.9 % (10.5-14.5); WBC 9.8 thou/uL (4.0-11.0)
[2017-01-17 06:19] LABS: CALCIUM 8.4 mg/dL (8.5-10.1); CREATININE 1.1 mg/dL (0.6-1.0); POTASSIUM 4.3 mmol/L (3.5-5.1)
[2017-01-17 08:30] VITALS: BP 188/83
[2017-01-17 09:30] VITALS: BP 140/85
[2017-01-17 09:45] VITALS: BP 197/85
== END 2017-01-17 10:33 | disposition short-term general hospital (02) | DRG 947 ==
PROVIDERS: Physical Medicine & Rehabilitation
DX: R53.81 Other malaise (principal); J18.1 Lobar pneumonia, unspecified organism; E87.1 Hypo-osmolality and hyponatremia; N17.9 Acute kidney failure, unspecified; E03.9 Hypothyroidism, unspecified; D64.9 Anemia, unspecified; S01.01XA Laceration without foreign body of scalp, initial encounter; I73.9 Peripheral vascular disease, unspecified; I25.10 Atherosclerotic heart disease of native coronary artery without angina pectoris; I10 Essential (primary) hypertension; Y99.8 Other external cause status; W18.39XA Other fall on same level, initial encounter; Y93.89 Activity, other specified; Y92.89 Other specified places as the place of occurrence of the external cause; Z79.82 Long term (current) use of aspirin; Z88.2 Allergy status to sulfonamides; Z79.899 Other long term (current) drug therapy; Z98.62 Peripheral vascular angioplasty status
CPT/HCPCS: 10112; 56524; 56525; 56526; 56639

== ENCOUNTER 2017-01-17 10:39 | Observation (INO) | payer OTHER, BC ==
[~2017-01-17] VITALS: Ht 162.6 cm; Wt 63.5 kg
--- NOTE | ~2017-01-17 | O ---
[facility] [place] [address] [place] [address] OPERATIVE REPORT Name: AQUILINO SAAVEDRA Room #: 314-P [facility] MSofie#: [id number] Admission: 01/17/17 Attend Phys: Lew Escobar MD Discharge: Date of : [birth year] Report #: [id number] THIS REPORT FOR: //name// CC: MAUREEN Escobar DATE OF SERVICE: 01/17/2017 PREOPERATIVE DIAGNOSIS: Traumatic 6 cm scalp laceration with underlying hematoma. POSTOPERATIVE DIAGNOSIS: Traumatic 6 cm scalp laceration with underlying hematoma. OPERATIVE PROCEDURE: Repair of 6 cm scalp traumatic laceration with hematoma. SURGEON: Kendrick Bonilla M.D. INDICATIONS: An 89-year-old lady who was hospitalized on the rehabilitation unit, was up, attempting to brush her teeth in the morning. She coughed, backwards, falling and striking the occiput of her head on either sink or bathroom stool or the floor, etiology is uncertain. She incurred a large posterior scalp laceration and underlying hematoma. A CT scan demonstrates no skull fracture, no underlying subdural hematoma. The patient requires emergent control of bleeding and repair of the scalp laceration. OPERATIVE PROCEDURE: The procedure, benefits and risks were discussed with the patient and although she was somewhat high risk for a general anesthetic. A general surgery procedure and anesthesia was required. The patient had previously been admitted to hospital for a possible non-STEMI LA and had been transferred to rehabilitation unit for ongoing rehabilitation of her lower back pain. This requires emergent laceration repair. OPERATIVE PROCEDURE: The procedure had been discussed with the patient, who gave informed consent, notification of her 2 sons was also performed. The patient was brought to the operating room suite and had satisfactory induction of general endotracheal anesthesia. She was then positioned in a left lateral decubitus position with axillary roll intact. An appropriate timeout was then performed. Sterile paint of the posterior scalp was performed with Betadine after significant amount of hair had been excised and resected. After draping was completed, the central portion of the scalp laceration was filled with hematoma. This was evacuated and underlying vessels were controlled with electrocautery. also had a [id number] 2-0 chromic suture placed, two of these were placed in the subcuticular galea. The scalp margins of the laceration were then widely approximated with interrupted horizontal mattress 2-0 Prolene sutures. After four of these were placed to closely approximate the [facility] [address] [place] [address] OPERATIVE REPORT Name: AQUILINO SAAVEDRA Room #: 314-P [facility] Aaron Wilkerson#: [id number] Admission: 01/17/17 Attend Phys: Lew Escobar MD Discharge: Date of : [birth year] Report #: [id number] edges of the laceration, the margins were then approximated with a running horizontal mattress 3-0 Prolene suture. After this was completed, sterile dressings were applied with Neosporin ointment. The estimated new blood loss was approximately 10 mL, old blood loss was consistent with 50 mL. The patient tolerated the procedure well and after sterile head band wrap was placed with Kerlix, she returned to recovery room in stable and satisfactory condition. <ELECTRONICALLY SIGNED> By: Kendrick Bonilla MD, FACS 01/18/17 1513 1307 1351 Kendrick Bonilla MD, FACS /nt
--- NOTE | ~2017-01-17 | S ---
[facility] [place] [address] [place] [address] SURGICAL PATH RPT PROCEDURE Name: AQUILINO ROSENTHAL Room #: 314-P TERRANCE Wilkerson#: [id number] Admission: 01/17/17 Date of : [birth year] Discharge: 01/20/17 Report #: [id number] Path Case #: [id number] PATHOLOGY REPORT COLLECTION DATE: 01/17/2017 RECEIVED DATE: 01/17/2017 SUBMITTING PHYS: Dr. Kendrick Bonilla OTHER PHYS: Dr. Shawn Sterling SPECIMEN(S) RECEIVED: A.Hematoma from laceration on back of head * * * * * * * * * * * * FINAL DIAGNOSIS: Hematoma from laceration on back of head, removal: - Elements of peripheral blood, consistent with hematoma. (IUV:mgr; d/t: 01/21/2017) PATHOLOGIST: Leah Reeves M.D. REPORT ELECTRONICALLY SIGNED BY: Leah Reeves M.D. DATE/TIME: 01/21/2017 15:34 * * * * * * * * * * * * GROSS PATHOLOGY: The specimen is received in formalin labeled "Aquilino Rosenthal, hematoma from laceration on back of head". Received is a moderate amount of blood coagulum measuring 4.8 x 3.5 x 1.0 cm in aggregate dimensions. The specimen is submitted representatively in cassette A1. (CAA; 01/18/2017) CLINICAL HISTORY: 4 cm traumatic laceration to back of head INITIAL CPT CODE(S): A; 97720 Professional services performed by [facility] at [facility] [address], [place] [address] Technical services performed by [facility] at [address] [place] [address], [address] [address]. [facility] [address] [place] [address] SURGICAL PATH RPT PROCEDURE Name: AQUILINO ROSENTHAL Room #: 314-P TERRANCE Wilkerson#: [id number] Admission: 01/17/17 Date of : [birth year] Discharge: 01/20/17 Report #: [id number] Path Case #: [id number] [facility] [address] [address] PHONE: [phone] DIRECTOR: Stefan Russo M.D. * * * END OF REPORT * * *
--- NOTE | ~2017-01-17 | HPC ---
[facility] [place] [address] PAIN MANAGEMENT CONSULTATION Name: AQUILINO SAAVEDRA Room #: 314-P [facility] Aaron Wilkerson#: [id number] Admission: 01/17/17 Attend Phys: Lew Escobar MD Discharge: 01/20/17 Date of : [birth year] Report #: [id number] THIS REPORT FOR: //name// CC: MUAREEN Escobar The patient is presided over by the attending Dr. Eloy Baez. HISTORY OF PRESENT ILLNESS: The patient is an 89-year-old female who has been resting on the rehab [facility]. She was admitted with pneumonia, left lower lobe and has a history of cardiac problem with some ischemic changes and anemia with heme positive stools. She has paroxysmal coughs. She stated that she had a significant cough episode. She fell. After the fall, she was found to have lacerated a skull vessel. This was repaired. The patient continues at this juncture to have pain and discomfort in the lower portion of her back with pain radiating down into both legs bilaterally. She has had some back pain and problems in the past. She has been seen by a doctor who does "injections for her." Injections in the past have been helpful. She is rating her pain as a 10/10 at this juncture. She is unable to stand or ambulate without assistance. She is in a wheelchair. She describes the pain as a deep burning, aching pain. It is constant, limits her activities. She cannot stand greater than 5 minutes. Pain radiates down into her legs. ALLERGIES: SULFA, MOXIFLOXACIN, PLAVIX. CURRENT MEDICATIONS: Prednisone, amlodipine, cholestyramine, aspirin, Claritin, Synthroid, lisinopril, Align capsule, Estrace 1 mg daily, calcium, Claritin 10 mg. PAST SURGICAL HISTORY: Right hand surgery, rotator cuff surgery, recent scalp repair of the lesion. PAST MEDICAL HISTORY: Cardiovascular, which has hypertension, dyslipidemia, coronary artery disease x 3 stents, pneumonia with cough, dizziness, hypothyroidism, mesenteric stents x 2, renal stents x 2, common iliac stents, carotid artery disease. FAMILY HISTORY: Father age 72, mother age 82. SOCIAL HISTORY: She is a former smoker, rare alcohol use. REVIEW OF SYSTEMS: The patient has significant ecchymoses on her hands, some dyspnea, coughing, is on oxygen. PHYSICAL EXAMINATION: GENERAL: The patient is sitting in a wheelchair. She requires help standing. Movement from the wheelchair to the fluoroscopy table causes some pain and [address] [address] PAIN MANAGEMENT CONSULTATION Name: AQUILINO SAAVEDRA Room #: 314-P [facility] Aaron Wilkerson#: [id number] Admission: 01/17/17 Attend Phys: Lew Escobar MD Discharge: 01/20/17 Date of : [birth year] Report #: [id number] discomfort. She has pain and discomfort in the low back area with pain radiating down to her legs. IMPRESSION: Lumbar radiculopathy, L5 distribution. Risks and benefits of an epidural steroid injection were discussed. Possible complications were reviewed. The patient elects to proceed and her daughter concurs. PROCEDURE NOTE: The patient was assisted in getting on the fluoroscopy table. In the prone position, her back was sterilely prepped at the L5-S1 distribution. A 0.25% bupivacaine was infiltrated. The patient has significant arthritis at this level and after a number of attempts, we were unsuccessful. We then proceeded to the L5-S1 area. A 0.25% bupivacaine had been infiltrated. A total of 80 mg Depo-Medrol, 40 mg triamcinolone and 2 mL of 0.25% bupivacaine was injected at the L5-S1 area on the left. The patient tolerated the procedure well. There were no complications. She was returned to the floor in good conditions. We would like to thank you for letting us participate in her care. We hope she continues to improve. <ELECTRONICALLY SIGNED> By: Erich Black MD 01/23/17 0901 1650 0031 Erich Black MD /nt
[2017-01-17 10:30] VITALS: BP 144/75; BP 174/57
[2017-01-17 13:55] VITALS: BP 141/53
[2017-01-17 16:05] VITALS: BP 150/66
[2017-01-17 20:00] VITALS: BP 179/78
[2017-01-18 04:42] LABS: HEMOGLOBIN 6.5 gm/dL (12.0-15.0); MCH 24.3 pg (26.0-34.0); MCHC 32.7 g/dL (28.0-37.0); MCV 74.4 fL (80.0-100.0); RBC 2.66 mil/uL (4.20-5.00); WBC 8.1 thou/uL (4.0-11.0)
[2017-01-18 04:45] LABS: HEMATOCRIT 19.8 % (37.0-47.0)
[2017-01-18 04:53] LABS: CALCIUM 8.1 mg/dL (8.5-10.1); POTASSIUM 4.4 mmol/L (3.5-5.1)
[2017-01-18 09:46] VITALS: BP 164/65; BP 168/60
[2017-01-18 14:43] VITALS: BP 192/88
[2017-01-18 18:09] VITALS: BP 138/50
[2017-01-18 20:30] VITALS: BP 161/58
[2017-01-19 04:45] VITALS: BP 157/61
[2017-01-19 07:36] LABS: HEMATOCRIT 27.5 % (37.0-47.0); MCH 25.5 pg (26.0-34.0); MCV 77.2 fL (80.0-100.0); RBC 3.56 mil/uL (4.20-5.00); RDW 20.2 % (10.5-14.5); WBC 13.4 thou/uL (4.0-11.0)
[2017-01-19 07:37] LABS: HEMOGLOBIN 9.1 gm/dL (12.0-15.0); PLATELET COUNT 342 thou/uL (150-400)
[2017-01-19 07:39] LABS: MANUAL DIFF YES
[2017-01-19 07:47] LABS: CALCIUM 8.8 mg/dL (8.5-10.1); CREATININE 0.9 mg/dL (0.6-1.0); POTASSIUM 4.3 mmol/L (3.5-5.1)
[2017-01-19 08:18] LABS: ABSOLUTE NEUTROPHILS 10.5 thou/uL (1.4-8.2); METAMYELOCYTES 2 %; TOTAL CELL COUNT 100
[2017-01-19 08:21] LABS: ANISOCYTOSIS 2+; POLYCHROMASIA OCCASIONAL
[2017-01-19 08:36] VITALS: BP 148/37
[2017-01-19 15:45] VITALS: BP 154/55
[2017-01-19 20:45] VITALS: BP 150/60
[2017-01-20 04:35] VITALS: BP 172/61
[2017-01-20 05:58] LABS: HEMATOCRIT 26.6 % (37.0-47.0); HEMOGLOBIN 8.9 gm/dL (12.0-15.0); MCH 25.4 pg (26.0-34.0); MCHC 33.3 g/dL (28.0-37.0); MCV 76.3 fL (80.0-100.0); RBC 3.48 mil/uL (4.20-5.00); RDW 20.3 % (10.5-14.5); WBC 17.8 thou/uL (4.0-11.0)
[2017-01-20 06:12] LABS: CALCIUM 9.2 mg/dL (8.5-10.1); CREATININE 0.9 mg/dL (0.6-1.0); POTASSIUM 4.6 mmol/L (3.5-5.1)
[2017-01-20 07:11] VITALS: BP 198/63
[2017-01-20] MEDS ORDERED: HYDROCODON-ACE1 EAC7 PO (10:04)
== END 2017-01-20 11:18 ==
LOC: 3N 10:39 → TBA 10:39 → 3N 13:47
PROVIDERS: Family Medicine; Surgery
DX: S01.01XA Laceration without foreign body of scalp, initial encounter (principal); M54.16 Radiculopathy, lumbar region; I10 Essential (primary) hypertension; E78.5 Hyperlipidemia, unspecified; R42 Dizziness and giddiness; E03.9 Hypothyroidism, unspecified; D64.9 Anemia, unspecified; R19.7 Diarrhea, unspecified; W01.198A Fall on same level from slipping, tripping and stumbling with subsequent striking against other object, initial encounter; Y93.89 Activity, other specified; Y92.89 Other specified places as the place of occurrence of the external cause; Y99.8 Other external cause status; Z95.5 Presence of coronary angioplasty implant and graft; Z88.8 Allergy status to other drugs, medicaments and biological substances; Z79.899 Other long term (current) drug therapy

== ENCOUNTER 2017-01-18 14:30 | Inpatient (IN) | payer OTHER, BC ==
[~2017-01-18] VITALS: Ht 160 cm; Wt 62.9 kg
--- NOTE | ~2017-01-18 | H ---
[facility] [place] [address] HISTORY AND PHYSICAL Name: AQUILINO SAAVEDRA Room #: 503-P ADM IN M.R.#: [id number] Admission: 01/20/17 Attend Phys: Eloy Baez MD Discharge: Date of : [birth year] Report #: [id number] THIS REPORT FOR: //name// CC: Eloy REDDY STERLING DATE OF SERVICE: 01/21/2017 DATE OF SERVICE: 01/21/2017 HISTORY OF PRESENT ILLNESS: The patient is an 89-year-old white female originally admitted with pneumonia, left lower lobe ischemic EKG changes, seen positive stool, history of peripheral vascular disease, coronary artery disease, severe paroxysmal cough, who was noted to have medical complexity with generalized debilitation. She was previously admitted to the [facility] and unfortunately had a big sneeze or cough and quickly fell backwards hitting her occiput. She was transferred off the [facility], had a traumatic 6 cm scalp laceration with underlying hematoma and underwent repair on 01/17/2017 by surgery. She is medically stabilized, appears to be doing better and has now been readmitted for acute in-hospital inpatient rehabilitation. She had been given 1 unit of packed red blood cells for acute blood loss. She has been monitored regarding some diarrhea thought to likely be from Augmentin. She continues on taper and steroids. PAST MEDICAL HISTORY: Includes prior NM, cardiac stents x 3, right hand surgery with arthritis, 2 renal stents, 2 mesenteric stents. ALLERGIES: MOXIFLOXACIN, SULFA, CLOPIDOGREL. SOCIAL HISTORY: Lives in a house alone, was premorbidly independent for ADLs. She used a cane at all times. There are 3 steps into the house. She lives [place], [place]. Her daughter lives very close and there is a son, who lives there as well who is a physician. She has another son, Dr. Jj Sterling who is a continuity clerk here in the [place] [employer]. REVIEW OF SYSTEMS: No current complaints of chest pain, shortness of breath, abdominal discomfort. Complains of being weak. No focal extremity pain complaints. PHYSICAL EXAMINATION: GENERAL: She is a pleasant 89-year-old white female in no obvious distress. VITAL SIGNS: Last recorded temperature 97.5, pulse 96, respirations 12, blood pressure 141/45. The patient is alert, oriented. HEENT: Appeared to be benign. Cranial nerves are grossly intact. Facies are symmetric. CHEST: Sounded clear to auscultation. [facility] [address] [place] [address] HISTORY AND PHYSICAL Name: AQUILINO SAAVEDRA Room #: 503-P [facility] IN M.R.#: [id number] Admission: 01/20/17 Attend Phys: Eloy Baez MD Discharge: Date of : [birth year] Report #: [id number] CARDIOVASCULAR: Sounded regular rate and rhythm. ABDOMEN: Bowel sounds positive, nontender. GENITOURINARY AND RECTAL: Deferred. NEUROLOGIC: She has functional range of motion of both upper extremities without obvious focal weakness. DTRs are 1. Upon examination of her scalp, she does have the posterior occipital area which has been surgically repaired. The incision appears to be intact without any significant drainage. No erythema. In the lower extremities, there is no focal calf swelling, functional range of motion with strength grade 4- to 3+/5. DTRs are trace to 1. She is transferring with mod assist. Gait is min assist to 100 feet once up. She is utilizing a standard cane. ASSESSMENT: An 89-year-old white female with the following problem lists: 1. Medical complexity with generalized debilitation. 2. Recent fall with occipital laceration status post repair. 3. Pneumonia, left lower lobe. 4. History of severe paroxysmal coughing, which has improved. 5. Prior heme positive stool on PPI. 6. History of peripheral vascular disease with renal and iliac stents, inferior mesenteric artery stent. 7. Coronary artery disease. 8. Hypertension. 9. Hyponatremia. 10. Diarrhea thought likely from antibiotics. PLAN: The patient is admitted for acute in-hospital inpatient rehabilitation. From a postadmission physician evaluation perspective, there are no relevant changes since the preadmission screening. Please see the above review of prior and current medical and functional conditions and comorbidities. Please see the patient's previous and current functional status. As far as risk of complications, there are multiple medical comorbidities as noted above. The initial plan of care involves the interdisciplinary acute inpatient rehabilitation program with the goal of maximizing the patient's functional independence, so that she can hopefully return back to her prior living situation. Prognosis is reasonably good with estimated length of stay probably at least 10 days to 2 weeks. Potential barriers would include her multiple medical comorbidities and decreased functional status. She also has proximal weakness of both lower extremities and used a lift chair at home premorbidly. DIAGNOSIS: Appropriate for an acute in-hospital inpatient rehabilitation stay. [facility] [address] [place] [address] HISTORY AND PHYSICAL Name: AQUILINO SAAVEDRA #: 503-P ADM IN M.R.#: [id number] Admission: 01/20/17 Attend Phys: Eloy Baez MD Discharge: Date of : [birth year] Report #: [id number] She meets medical necessity criteria. She does have the tolerance for therapies and has appropriate discharge goals back to the home setting. <ELECTRONICALLY SIGNED> By: Eloy Baez MD 01/22/17 [id number] [id number] Eloy Baez MD /nt
[2017-01-20] MEDS ORDERED: HYDROCODON-ACE1 EAC7 PO (10:04)
[2017-01-20 13:00] VITALS: BP 141/45
[2017-01-20 21:00] VITALS: BP 186/77
[2017-01-21 06:33] VITALS: BP 193/82
[2017-01-21 08:58] LABS: HEMATOCRIT 30.1 % (37.0-47.0); HEMOGLOBIN 9.9 gm/dL (12.0-15.0)
[2017-01-21 11:46] VITALS: BP 137/71
[2017-01-21 15:39] VITALS: BP 138/57
[2017-01-21 20:20] VITALS: BP 144/62
[2017-01-22 05:48] VITALS: BP 160/90
[2017-01-22 07:48] LABS: HEMATOCRIT 30.1 % (37.0-47.0); HEMOGLOBIN 9.9 gm/dL (12.0-15.0)
[2017-01-22 08:02] VITALS: BP 145/53
[2017-01-22 16:00] VITALS: BP 143/60
[2017-01-23 05:27] VITALS: BP 139/76
[2017-01-23 15:00] VITALS: BP 106/56
[2017-01-24 06:51] VITALS: BP 157/70
[2017-01-24 16:38] VITALS: BP 131/48
[2017-01-25 06:18] VITALS: BP 144/54
[2017-01-25 17:00] VITALS: BP 127/43
[2017-01-26 05:30] VITALS: BP 152/55
[2017-01-26 09:50] VITALS: BP 114/40
[2017-01-27 05:57] VITALS: BP 164/78
[2017-01-27 15:25] VITALS: BP 111/40
[2017-01-28 05:40] VITALS: BP 149/56
[2017-01-28 08:00] VITALS: BP 179/63
[2017-01-28] MEDS ORDERED: HYDROCODON-ACE1 EAC7 PO (08:07)
[2017-01-28] MEDS ORDERED: QUINU10 PD PO (08:07)
[2017-01-28 15:51] VITALS: BP 125/54
[2017-01-29 05:57] VITALS: BP 137/62
[2017-01-29 16:58] VITALS: BP 122/56
[2017-01-30 05:30] VITALS: BP 129/47
[2017-01-30 08:32] VITALS: BP 129/47
[2017-01-30 11:11] VITALS: BP 129/47
[2017-01-30 11:13] VITALS: BP 129/47
[2017-01-30 11:43] VITALS: BP 129/47
== END 2017-01-30 11:55 | disposition home or self-care (01) | DRG 947 ==
PROVIDERS: Nurse Practitioner; Nurse Practitioner Adult Health
DX: R53.81 Other malaise (principal); J18.9 Pneumonia, unspecified organism; E87.1 Hypo-osmolality and hyponatremia; D62 Acute posthemorrhagic anemia; N17.9 Acute kidney failure, unspecified; I25.10 Atherosclerotic heart disease of native coronary artery without angina pectoris; M19.90 Unspecified osteoarthritis, unspecified site; I73.9 Peripheral vascular disease, unspecified; Z60.2 Problems related to living alone; Z66 Do not resuscitate; I10 Essential (primary) hypertension; E03.9 Hypothyroidism, unspecified; S00.93XA Contusion of unspecified part of head, initial encounter; W18.39XA Other fall on same level, initial encounter; Y93.89 Activity, other specified; Y92.89 Other specified places as the place of occurrence of the external cause; Z88.1 Allergy status to other antibiotic agents; Z88.2 Allergy status to sulfonamides; Z95.5 Presence of coronary angioplasty implant and graft; I25.2 Old myocardial infarction; Z88.8 Allergy status to other drugs, medicaments and biological substances; Y99.8 Other external cause status
CPT/HCPCS: 10112